=== PATIENT | male | born 1970 | race Caucasian/White ===

== ENCOUNTER → 2018-11-10 | Day surgery (SDC) | payer OTHER ==
--- NOTE | 2018-11-09 14:19 | Diagnostic Imaging Report ---
Exam: KUB - 2 views Clinical History: Preadmit, renal stone Comparison: None Findings: There are 3 calcific densities projecting over the lower pole of the left kidney, measuring 6 mm, 7 mm, an 8 mm from superior to inferior. Possible 5 mm left upper pole renal calcification. No right renal calculi identified. Nonobstructive bowel gas pattern. No evidence of free intraperitoneal air. No acute bony abnormality. Impression: Left-sided renal calculi as above. Signed by: Dr. Aubree Dickinson MD on 11/09/2018 2:15 PM
[~2018-11-10] MED LIST: ACETAMINOPHEN 1000 MG/100 ML IV ONE; ACETAMINOPHEN/CODEINE 300MG - 30MG TAB ONE; CEFTRIAXONE SOD 1 GM/NS 50 ML 50 ML IV ONE; DEXAMETHASONE SOD PHOS INJ 4 MG/ML VIAL ONE; FENTANYL CITRATE/PF 100MCG/2 ML INJ ONE; LIDOCAINE HCL 2% LOCAL INJ 5 ML SDV VIAL INJ ONE; LIDOCAINE JELLY 2% 10ML URO-JET ONE; MIDAZOLAM HCL 2 MG/2 ML VIAL ONE; ONDANSETRON HCL INJ 2MG/ML 2ML 2 MG/ML VIAL ONE; PROPOFOL IV EMULSION 10 MG/ML 20 ML VIAL ONE; SEVOFLURANE INHAL SOLN 250 ML PEN BTL ONE
--- OUTSIDE RECORDS SUMMARY | 2018-11-10 05:23 | XMS REPORT ---
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 Allergies, Adverse Reactions, Alerts This patient has no known allergies or adverse reactions. Medications This patient has no known medications. Results Test Description Test Time Test Comments Text Results Atomic Results Result Comments ABDOMEN-1VIEW (KUB) 2018-11-09 14:12:00 [place] [address] Patient Name: AIDEE EDWARD MR #: [id number] : 1970 Age/Sex: 48/M Req #: [id number] Adm Physician: Ordered by: RADHA BECERRIL MD Report #: [id number] Location: OR Room/Bed: Procedure: [id number] DX/ABDOMEN-1VIEW (KUB) Exam Date: 11/09/18 Exam Time: 1340 REPORT STATUS: Signed Exam: KUB - 2 views Clinical History: Preadmit, renal stone Comparison: None Findings: There are 3 calcific densities projecting over the lower pole of the left kidney, measuring 6 mm, 7 mm, an 8 mm from superior to inferior. Possible 5 mm left upper pole renal calcification. No right renal calculi identified. Nonobstructive bowel gas pattern. No evidence of free intraperitoneal air. No acute bony abnormality. Impression: Left-sided renal calculi as above. Signed by: Dr. Akshat Martinez MD on 11/09/2018 2:15 PM Dictated By: AKSHAT MARTINEZ MD 14 Transcribed By: DILIA on 11/09/181414 COPY TO: RADHA BECERRIL MD
[2018-11-10 09:00] VITALS: BP 143/98
--- NOTE | 2018-11-10 15:39 | Operative Report ---
DATE OF PROCEDURE: 11/10/2018 SURGEON: Yomi Stuart MD PREOPERATIVE DIAGNOSES: Left 5 mm ureteral stone by CAT scan, multiple left renal calculi. POSTOPERATIVE DIAGNOSES: Left 5 mm ureteral stone by CAT scan, multiple left renal calculi. PROCEDURE: 1. Staged shock wave lithotripsy, left side. 2. Supervision of fluoroscopy. ANESTHESIA: General. ESTIMATED BLOOD LOSS: Minimal. COMPLICATIONS: None. INDICATIONS: Mr. Driscoll is a 48-year-old male with a history of multiple previous ureteral calculi. He went to [facility], where he was found to have a 5 mm, by report, left mid ureteral calculus. He has failed a trial of passage, has extreme calculi. He has had multiple stones previously and due to his work, declines to have a stent placed at this time. He voiced an explicit understanding of options, alternatives, risks, and benefits and elected to proceed with shock wave lithotripsy. PROCEDURE IN DETAIL: After informed consent was obtained, the patient was taken to the operative suite, placed supine on the operating table, underwent general anesthesia by the Anesthesia service. He was placed supine on the shock wave table. The stone was localized in the X, Y and Z planes. A total of 3000 shocks on maximum power setting of 7 were delivered to the stone. The patient tolerated the procedure well and was transported to the recovery room in excellent condition. Supervision of fluoroscopy: I was present for entire procedure and supervised fluoroscopy, there was no radiologist present. Yomi Stuart MD ES/MODL /[id number]
== END | disposition home or self-care (01) ==
LOC: OR 05:21
PROVIDERS: ATTEND Urology
DX: N20.1 Calculus of ureter (principal); N20.0 Calculus of kidney; N13.39 Other hydronephrosis; R00.1 Bradycardia, unspecified; Z01.810 Encounter for preprocedural cardiovascular examination
CPT/HCPCS: 50590; 74018; 93005; J0131; J0696; J1100; J2001; J2250; J2405; J2704; J3010